=== PATIENT | male | born 1980 | race Caucasian/White ===

== ENCOUNTER 2016-09-20 10:27 | Emergency (ER) | payer OTHER ==
--- NOTE | ~2016-09-20 | CT4 ---
[facility] A Service of [facility] RADIOLOGY TEXT RESULTS PATIENT: MARGOT LAWRENCE LOCATION: SED : 84 UNIT #: [id number] AGE: [address]: Jerel Martin MD SEX: M ORDER DR: [id number] [address] [address] [id number] MR#: [id number] #: [id number] NAME: MARGOT LAWRENCE : 1980 SEX: M STUDY DATE/TIME: 09/20/2016 10:55 UNIT: SED ROOM: STUDY DESCRIPTION: CT Abd and Pelv Wo Cont Attending Physician: Jerel Martin M.D. Ordering Physician: Jerel Martin M.D. Primary Care Physician: Primary Care Physician No MEDICAL IMAGING REPORT This report is preliminary unless electronic signature is present. EXAM CT abdomen and pelvis without IV contrast COMPARISON None INDICATIONS 36-year-old male with left-sided abdominal pain since this morning. History of renal calculi. FINDINGS Axial CT imaging abdomen and pelvis was performed without IV contrast. Coronal and sagittal reformats were constructed. Lack of IV contrast limits evaluation of adenopathy, vasculature and viscera. The CT exam was performed with one or more of the following radiation dose reduction techniques: automatic exposure control, adjustment of mA and/or kV according to patient size, and iterative reconstruction. Tiny fat-containing umbilical hernia. Mild multilevel degenerative facet disease at the lower lumbar spine. Multilevel degenerative endplate change of the lower thoracic and upper lumbar spine is mild. No acute fractures or suspicious osseous lesions. No acute findings in the lower chest. Unenhanced liver, gallbladder, pancreas, spleen, adrenal glands and right kidney are within normal limits. There appears to be a punctate calculus in the inferior pole of the left kidney. The left kidney appears mildly edematous and in the distal left ureter there is a 4 to 5 mm calculus with mild proximal left hydroureter but no hydronephrosis. The left ureteral calculus is at the ureterovesicular junction. Urinary bladder is unremarkable. No calculi seen within the bladder or visualized urethra. Prostate gland is within normal limits. Pelvic phleboliths. No evidence of bowel obstruction or acute inflammatory change. Appendix is normal. Normal caliber of the abdominal aorta. No free fluid or STS. [facility] A Service of [facility] RADIOLOGY TEXT RESULTS PATIENT: MARGOT LAWRENCE LOCATION: [facility] [place] : [birth year] UNIT #: [id number] AGE: [address]: Jerel Martin MD SEX: M ORDER DR: pneumoperitoneum. No adenopathy. IMPRESSION 1. Obstructive calculus in the distal left ureter just above the ureterovesicular junction measuring up to approximately 4 to 5 mm. There is a punctate nonobstructive calculus in the left kidney. There is mild left hydroureter without left hydronephrosis. There is mild edema of the left kidney. 2. Other incidental findings as described in the body of the report. Dictated by... Antonio Vera M.D. THIS IS AN ELECTRONICALLY VERIFIED REPORT Antonio Vera M.D. at 09/28/2016 10:26 PM Karen TD: 09/20/2016 14:26 JOB #: [id number] MEDICAL IMAGING REPORT Page 1 of 1
[2016-09-20 10:37] LABS: URINE SOURCE CLEAN CATCH
[2016-09-20 10:39] LABS: URINE APPEARANCE CLEAR; URINE BILIRUBIN NEG (NEG); URINE BLOOD 3+ (NEG); URINE COLOR YELLOW; URINE GLUCOSE NEG (NORM); URINE KETONE NEG (NEG); URINE LEUKOCYTE ESTERASE NEG (NEG); URINE NITRATE NEG (NEG); URINE PH 5.5 (5-8); URINE PROTEIN NEG (NEG); URINE SPECIFIC GRAVITY >=1.030 (1.003-1.035); URINE UROBILINOGEN 0.2 MG/DL (NORM)
[2016-09-20 11:09] LABS: MICRO INDICATED? YES
[2016-09-20 11:11] LABS: BASOPHIL# 0.1 X10e3 (0-0.3); BASOPHIL% 0.8 % (0-2.5); EOSINOPHIL# 0.2 X10e3 (0-0.7); EOSINOPHIL% 1.8 % (0.0-7.0); HEMATOCRIT 50.3 % (38.0-50.0); HEMOGLOBIN 17.4 gm/dL (13.0-16.0); LYMPHOCYTE# 3.8 X10e3 (1.0-3.5); MEAN CELL VOLUME 93.8 FL (83-96); MEAN CORPUSCULAR HEMOGLOBIN 32.4 PG (28-34); MEAN CORPUSCULAR HGB CONC 34.6 g/dL (30-36); MEAN PLATELET VOLUME 7.8 FL (6.5-11.5); MONOCYTE% 7.6 % (3.0-12.0); NEUTROPHIL% 60.8 % (40-75); PLATELET COUNT 259 X10e3 (140-420); RED BLOOD COUNT 5.36 X10e (3.90-5.60); RED CELL DISTRIBUTION WIDTH 13.3 % (11.0-15.5); WHITE BLOOD COUNT 13.2 X10e3 (4.0-10.5)
[2016-09-20 11:12] LABS: DIFF IND NO
[2016-09-20 11:16] LABS: CULTURE INDICATED? NO; URINE BACTERIA NEG (NEG); URINE RBC 50-100 /[HPF] (0-2); URINE WBC 0-2 /[HPF] (0-5)
[2016-09-20 11:29] LABS: ALBUMIN SERUM 4.6 g/dL (3.5-5.0); BILIRUBIN, DIRECT 0.1 mg/dL (0.0-0.2); BILIRUBIN,INDIRECT 0.3 mg/dL (0.0-0.9); BILIRUBIN,TOTAL 0.4 mg/dL (0.2-2.0); BUN/CREATININE RATIO 12.5; CALCIUM SERUM 9.2 mg/dL (8.4-10.2); CREATININE SERUM 1.2 mg/dL (0.6-1.4); GLOM FILT RATE Estimated 78.4 mL/min (>60); POTASSIUM 4.1 mmol/L (3.5-5.1); PROTEIN TOTAL SERUM 7.7 g/dL (6.0-8.3)
== END 2016-09-20 13:09 | disposition home or self-care (01) ==
LOC: SED 10:27
PROVIDERS: Emergency Medicine
DX: N20.0 Calculus of kidney (principal); F17.210 Nicotine dependence, cigarettes, uncomplicated; Z88.0 Allergy status to penicillin; Z91.013 Allergy to seafood
CPT/HCPCS: 36415; 74176; 80048; 80076; 81003; 83690; 85025; 96374; 96375; 96376; 99284; J1170; J1885; J2405